=== PATIENT | female | born 1985 | race Caucasian/White ===

== ENCOUNTER 2019-09-16 01:54 | Emergency (ER) | payer SELFPAY ==
[2019-09-16] MEDS ORDERED: LORazepam 2 MG/ML VIAL ONE ×2 (02:11→04:38)
[2019-09-16] MEDS ORDERED: NA CHLORIDE 0.9% 1,000 ML ONE (02:11)
[2019-09-16] MEDS ORDERED: PROMETHAZINE INJ 25 MG/ML AMP ONE ×2 (02:11→04:38)
[2019-09-16 02:28] LABS: Absolute Lymphocytes (CBC) 1.5 K/uL (0.7-4.9); Basophils % 0.4 % (0-1.3); Hematocrit 38.7 % (36.0-45.0); Lymphocytes % 20.8 % (15.3-44.8); MPV 8.3 fL (7.6-11.3); RBC Red Blood Cell Count 4.49 M/uL (3.86-4.86)
[2019-09-16 02:36] LABS: ALT/SGPT 79 U/L (12-78); AST/SGOT 73 U/L (15-37); Albumin 3.6 g/dL (3.4-5.0); Alkaline Phosphatase 94 U/L (45-117); BUN Blood Urea Nitrogen 8 mg/dL (7-18); Bicarbonate 21 mmol/L (21-32); Bilirubin Direct 0.1 mg/dL (0-0.2); Bilirubin Total 0.5 mg/dL (0.2-1.0); Glucose Level 123 mg/dL (74-106); Lipase 44 U/L (73-393); Potassium 3.9 mmol/L (3.5-5.1); Sodium Level 138 mmol/L (136-145)
[2019-09-16 03:31] LABS: Urine Blood TRACE (NEG); Urine Glucose NEGATIVE (NEG); Urine Protein NEGATIVE (NEG); Urine Specific Gravity 1.025 (1.005-1.030); Urine pH 7.5 (5.0-7.0)
--- NOTE | 2019-09-16 06:15 | ER ---
Nurse's Notes [facility] Name: Minda Warner Age: 34 yrs Sex: Female : 1985 Arrival Date: 09/16/2019 Time: 01:55 Bed 5 Private MD: Diagnosis: Heroin Withdrawal Syndrome Presentation: 09/15 01:55 Chief complaint: EMS states: she went in to [facility] yesterday. been using heroine mg2 for years. today she is vomiting and with severe abdominal pain. Coronavirus screen: Patient denies a cough. Patient denies shortness of breath or difficulty breathing. Patient denies measured and/or subjective temperature greater than 100.4F prior to today's visit. Patient denies travel on a cruise ship or to a country the [facility] currently lists as an affected area. Patient denies contact with known and/or suspected case of COVID-19. been tested negative for COVID in [facility] yesterday. Ebola Screen: No symptoms or risks identified at this time. Initial Sepsis Screen: Does the patient meet any 2 criteria? No. Patient's initial sepsis screen is negative. Does the patient have a suspected source of infection? No. Patient's initial sepsis screen is negative. Risk Assessment: Do you want to hurt yourself or someone else? Patient reports no desire to harm self or others. Onset of symptoms was September 15, 2019. 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 - Social history:: Smoking status: unknown Patient uses street drugs, heroin. - Family history:: not pertinent. - Hospitalizations: : No recent hospitalization is reported. Screenin:13 Abuse screen: Denies threats or abuse. Denies injuries from another. Nutritional mg2 screening: No deficits noted. Tuberculosis screening: No symptoms or risk factors identified. Fall Risk IV access (20 points). Assessment: 02:13 General: Appears uncomfortable, Behavior is calm, cooperative. Pain: Complains of pain mg2 in abdomen. Neuro: Level of Consciousness is awake, alert, obeys commands, Oriented to person, place, time, situation. Cardiovascular: Capillary refill < 3 seconds Patient's skin is warm and dry. Respiratory: Airway is patent Respiratory effort is even, unlabored, Respiratory pattern is regular, symmetrical. GI: Reports lower abdominal pain, vomiting. : No signs and/or symptoms were reported regarding the genitourinary system. EENT: No signs and/or symptoms were reported regarding the EENT system. Derm: Skin is intact, is healthy with good turgor, Skin is pink, warm \T\ dry. normal. Musculoskeletal: Circulation, motion, and sensation intact. Capillary refill < 3 seconds. 03:30 Reassessment: Patient appears in no apparent distress at this time. Patient and/or mg2 family updated on plan of care and expected duration. Pain level reassessed. Patient is alert, oriented x 3, equal unlabored respirations, skin warm/dry/pink. 04:34 Reassessment: Patient appears in no apparent distress at this time. patient vomited. mg2 treatment given. 06:18 Reassessment: JENNA Gardner of [facility] called and was updated about the patient .she mg2 will send transportation to pick the patient up. 07:22 Reassessment: PT D/C TO [facility] VIA W/C WITH [facility], DX WITH HEROIN WITHDRAWAL bp SYNDROME. Vital Signs: 01:55 BP 149 / 112; Resp 18; mg2 02:13 Pulse 89; Temp 98.3; Pulse Ox 100% on R/A; mg2 04:18 BP 134 / 91; Pulse 89; Resp 18; Pulse Ox 99% on R/A; mg2 05:30 BP 116 / 83; Pulse 77; Resp 18; Pulse Ox 100% on R/A; mg2 06:32 BP 133 / 90; Pulse 80; Resp 18; Pulse Ox 100% on R/A; mg2 07:22 BP 117 / 75; Pulse 73; Resp 16; Temp 98.5; Pulse Ox 99% ; bp ED Course: 01:55 Patient arrived in ED. mg2 01:57 Brian Joyce MD is Attending Physician. rn 01:57 Triage completed. mg2 01:59 Arm band placed on. mg2 02:05 Missed attempt(s): 22 gauge in left wrist. Bleeding controlled, band aid applied, ds4 catheter tip intact. 02:13 No provider procedures requiring assistance completed. Inserted saline lock: 22 gauge mg2 in right hand, using aseptic technique. Blood collected. 02:14 Enma Kruger, RN is Primary Nurse. ea 02:14 Patient has correct armband on for positive identification. Door closed. mg2 02:16 Basic Metabolic Panel Sent. ds4 02:17 Lipase Sent. ds4 02:17 Hepatic Function Sent. ds4 02:17 CBC with Diff Sent. ds4 02:20 Radiology exam delayed due to test not completed at this time. IV insertion eh attempt and/or patient not having appropriate IV at this time. 02:40 Radiology exam delayed due to test not completed at this time. eh 03:10 Radiology exam delayed due to test not completed at this time. eh 03:55 CT Abd/Pelvis - IV Contrast Only In Process Unspecified. EDMS 06:30 IV discontinued, intact, bleeding controlled, No redness/swelling at site. Pressure mg2 dressing applied. Administered Medications: 02:12 Drug: Ativan 1 mg Route: IVP; Site: right hand; mg2 03:09 Follow up: Response: No adverse reaction mg2 02:12 Drug: NS 0.9% 1000 ml Route: IV; Rate: 1000 ml; Site: right hand; mg2 04:18 Follow up: Response: No adverse reaction; IV Status: Completed infusion; IV Intake: mg2 1000ml 02:12 Drug: Phenergan 12.5 mg Route: IVP; Site: right hand; mg2 03:09 Follow up: Response: No adverse reaction mg2 04:33 Drug: Ativan 1 mg Route: IVP; Site: right hand; mg2 05:16 Follow up: Response: No adverse reaction mg2 04:33 Drug: Phenergan 12.5 mg Route: IVP; Site: right hand; mg2 05:17 Follow up: Response: No adverse reaction; Vomiting decreased mg2 Intake: 04:18 IV: 1000ml; Total: 1000ml. mg2 Outcome: 06:14 Discharge ordered by . rn 06:30 Condition: stable mg2 07:22 Discharged to Rehab Facility bp 07:22 Discharge instructions given to patient, Instructed on discharge instructions, follow up and referral plans. Demonstrated understanding of instructions, follow-up care. 07:24 Patient left the ED. bp Signatures: Dispatcher [employer] EDMS Dallas Morales Brian Joyce MD MD rn Swanson, Donovan ds4 Enma Kruger, RN RN ea Dane Arredondo, RN RN bp Alvin Jeffery, RN RN mg2
--- NOTE | 2019-09-16 06:15 | EDPHYS ---
Physician Documentation [facility] Name: Minda Warner Age: 34 yrs Sex: Female : 1985 Arrival Date: 09/16/2019 Time: 01:55 Bed 5 Private MD: ED Physician Brian Joyce HPI: 09/15 01:58 This 34 yrs old Female presents to ER via EMS with complaints of heroin rn withdrawal. 01:58 Sent from rehab, just checked into rehab, last heroin use yesterday, no fever, reports rn nausea/vomiting/abd pain/muscle cramps, reports using heroin for years. No trauma. Does not think she is . Given suboxone but states threw it up.. Onset: The symptoms/episode began/occurred today. Severity of symptoms: At their worst the symptoms were moderate in the emergency department the symptoms are unchanged. The patient has not experienced similar symptoms in the past. The patient has not recently seen a physician. 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 - Social history:: Smoking status: unknown Patient uses street drugs, heroin. - Family history:: not pertinent. - Hospitalizations: : No recent hospitalization is reported. ROS: 01:58 Constitutional: Negative for fever, chills, and weight loss, Eyes: Negative for injury, rn pain, redness, and discharge, Neck: Negative for injury, pain, and swelling, Cardiovascular: Negative for chest pain, palpitations, and edema, Respiratory: Negative for shortness of breath, cough, wheezing, and pleuritic chest pain, Abdomen/GI: Negative for constipation Back: Negative for injury and pain, MS/Extremity: Negative for injury and deformity, Skin: Negative for injury, rash, and discoloration, Neuro: Negative for numbness, tingling, and seizure. Exam: 01:58 Constitutional: This is a well developed, well nourished patient who is awake, alert, rn moaning Head/Face: Normocephalic, atraumatic. ENT: dry MM Cardiovascular: tachycardic, regular Respiratory: Milld tachypnea, no retractions Abdomen/GI: soft, + reports pain with palpation in all 4 quadrants Skin: Warm, dry MS/ Extremity: Pulses equal, no cyanosis. Neurovascular intact. Neuro: Awake and alert, GCS 15, oriented to person, place, and situation. Cranial nerves II-XII grossly intact. Motor strength 5/5 in all extremities. Sensory grossly intact. Vital Signs: 01:55 BP 149 / 112; Resp 18; mg2 02:13 Pulse 89; Temp 98.3; Pulse Ox 100% on R/A; mg2 04:18 BP 134 / 91; Pulse 89; Resp 18; Pulse Ox 99% on R/A; mg2 05:30 BP 116 / 83; Pulse 77; Resp 18; Pulse Ox 100% on R/A; mg2 06:32 BP 133 / 90; Pulse 80; Resp 18; Pulse Ox 100% on R/A; mg2 07:22 BP 117 / 75; Pulse 73; Resp 16; Temp 98.5; Pulse Ox 99% ; bp MDM: 01:57 Patient medically screened. rn 06:11 Differential Diagnosis heroin withdrawal. 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 Counseling: I had a detailed discussion with the patient and/or guardian regarding: the historical points, exam findings, and any diagnostic results supporting the discharge/admit diagnosis, lab results, radiology results, the need for outpatient follow up, to return to the emergency department if symptoms worsen or persist or if there are any questions or concerns that arise at home. Response to treatment: the patient's symptoms have markedly improved after treatment, and as a result, I will discharge patient. Special discussion: I discussed with the patient/guardian in detail that at this point there is no indication for admission to the hospital. It is understood, however, that if the symptoms persist or worsen the patient needs to return immediately for re-evaluation. ED course: Pt better, sleeping, improved vitals, told patient unable to help her through entire withdrawal period, and we do not have detox capability, will dc back to Rehab facility. . 09/15 01:58 Order name: Basic Metabolic Panel; Complete Time: 02:38 rn 09/15 01:58 Order name: CBC with Diff; Complete Time: 02:38 rn 09/15 01:58 Order name: Hepatic Function; Complete Time: 02:38 rn 09/15 01:58 Order name: Lipase; Complete Time: 02:38 rn 09/15 03:13 Order name: Urine --Ancillary (enter results); Complete Time: 03:41 ds4 09/15 03:13 Order name: Urine Dipstick--Ancillary (enter results); Complete Time: 03:41 ds4 09/15 01:58 Order name: IV Start; Complete Time: 02:13 rn 09/15 01:58 Order name: Labs collected and sent; Complete Time: 02:13 rn 09/15 02:09 Order name: CT Abd/Pelvis - IV Contrast Only rn 09/15 01:58 Order name: Urine Test (obtain specimen); Complete Time: 03:08 rn 09/15 01:58 Order name: Urine Dipstick-Ancillary (obtain specimen); Complete Time: 03:09 rn Administered Medications: 02:12 Drug: Ativan 1 mg Route: IVP; Site: right hand; mg2 03:09 Follow up: Response: No adverse reaction mg2 02:12 Drug: NS 0.9% 1000 ml Route: IV; Rate: 1000 ml; Site: right hand; mg2 04:18 Follow up: Response: No adverse reaction; IV Status: Completed infusion; IV Intake: mg2 1000ml 02:12 Drug: Phenergan 12.5 mg Route: IVP; Site: right hand; mg2 03:09 Follow up: Response: No adverse reaction mg2 04:33 Drug: Ativan 1 mg Route: IVP; Site: right hand; mg2 05:16 Follow up: Response: No adverse reaction mg2 04:33 Drug: Phenergan 12.5 mg Route: IVP; Site: right hand; mg2 05:17 Follow up: Response: No adverse reaction; Vomiting decreased mg2 Disposition: 09/16/19 06:14 Discharged to Home. Impression: Heroin Withdrawal Syndrome. - Condition is Stable. - Discharge Instructions: Opioid Withdrawal. - Medication Reconciliation Form, Thank You Letter, Antibiotic Education, Prescription Opioid Use form. - Follow up: Private Physician; When: As needed; Reason: Recheck today's complaints, Re-evaluation by your physician. - Problem is new. - Symptoms have improved. Signatures: Dispatcher [employer] EDMS Brian Joyce MD MD rn Peltier, Brian, RN RN bp Gardose, Michele, RN RN mg2 Corrections: (The following items were deleted from the chart) 07:24 06:14 09/16/2019 06:14 Discharged to Home. Impression: Heroin Withdrawal Syndrome. bp Condition is Stable. Forms are Medication Reconciliation Form, Thank You Letter, Antibiotic Education, Prescription Opioid Use. Follow up: Private Physician; When: As needed; Reason: Recheck today's complaints, Re-evaluation by your physician. Problem is new. Symptoms have improved. rn
[2019-09-16 07:37] VITALS: BP 117/75; TEMP 98.5; O2SAT 99
--- NOTE | 2019-09-16 16:33 | RAD REPORT ---
EXAM DESCRIPTION: CT - Abdomen Pelvis W Contrast - 09/16/2019 4:33 am CLINICAL HISTORY: The patient is 34 years old and is Female; ABD PAIN TECHNIQUE: Axial computed tomography images of the abdomen and pelvis with intravenous contrast. Sagittal an d coronal reformatted images were created and reviewed. This CT exam was performed using one or mor e of the following dose reduction techniques: automated exposure control, adjustment of the mA and/ or kV according to patient size, and/or use of iterative reconstruction technique. COMPARISON: No relevant prior studies available. FINDINGS: LUNG BASES: Unremarkable. No mass. No consolidation. ABDOMEN: LIVER: Unremarkable. No mass. GALLBLADDER AND BILE DUCTS: No calcified stones. No ductal dilation. PANCREAS: No ductal dilation. No mass. SPLEEN: Unremarkable. ADRENALS: Unremarkable. No mass. KIDNEYS AND URETERS: Innumerable bilateral renal cysts are present. The kidneys enhance symmetric ally. There is no hydronephrosis or hydroureter of either kidney. STOMACH AND BOWEL: The stomach is distended with fluid and air. The small bowel is relatively de compressed. A moderate amount stool is present throughout the abdomen and pelvis. There is no mucosal thickening or evidence of bowel obstruction. PELVIS: APPENDIX: No findings to suggest acute appendicitis. BLADDER: Unremarkable. No mass. REPRODUCTIVE: Unremarkable as visualized. ABDOMEN and PELVIS: INTRAPERITONEAL SPACE: Unremarkable. No free air. No significant fluid collection. BONES/JOINTS: No acute fracture. SOFT TISSUES: The soft tissues are normal. VASCULATURE: Unremarkable. No abdominal aortic aneurysm. LYMPH NODES: Unremarkable. No enlarged lymph nodes. IMPRESSION: No acute findings on this contrasted CT of the abdomen and pelvis to explain the patient 's symptoms. Electronically signed by: Rose Joseph MD 09/16/2019 4:01 AM CDT Due to temporary technical issues with the PACS/Fluency reporting system, reports are being signed by the in house radiologist without review as a courtesy to ensure prompt reporting. The interpreting r adiologist is fully responsible for the content of the report.
== END 2019-09-16 07:24 | disposition home or self-care (01) ==
LOC: ER 01:54
DX: F19.939 Other psychoactive substance use, unspecified with withdrawal, unspecified (principal); I10 Essential (primary) hypertension
CPT/HCPCS: 36415; 74177; 80048; 80076; 81003; 81025; 83690; 85025; 96361; 96374; 96375; 99284; J2550; J7030; Q9967

== ENCOUNTER 2020-05-09 02:13 | Emergency (ER) | payer OTHER, SELFPAY ==
[2020-05-09 02:57] LABS: Hematocrit 37.8 % (36.0-45.0); Lymphocytes % 38.6 % (15.3-44.8); MPV 9.2 fL (7.6-11.3); RBC Red Blood Cell Count 4.45 M/uL (3.86-4.86)
[2020-05-09] MEDS ORDERED: FAMOTIDINE 20 MG/2 ML VIAL IV ONE (02:58)
[2020-05-09] MEDS ORDERED: ONDANSETRON 4 MG/2 ML VIAL ONE ×2 (02:58→05:42)
[2020-05-09] MEDS ORDERED: MORPHINE 4 MG/ML SYR ONE ×2 (02:58→03:26)
[2020-05-09] MEDS ORDERED: MAGNES/ALUMIN/SIMET 30ML UCUP ONE (02:58)
[2020-05-09] MEDS ORDERED: LIDOCAINE VISCOUS 2% SOLN 15 ML UDC ONE (02:58)
[2020-05-09] MEDS ORDERED: NA CHLORIDE 0.9% 1,000 ML ONE (02:58)
[2020-05-09 03:03] LABS: ALT/SGPT 68 U/L (12-78); AST/SGOT 52 U/L (15-37); Albumin 3.2 g/dL (3.4-5.0); Alkaline Phosphatase 92 U/L (45-117); BUN Blood Urea Nitrogen 5 mg/dL (7-18); Bicarbonate 26 mmol/L (21-32); Bilirubin Direct 0.1 mg/dL (0-0.2); Bilirubin Total 0.3 mg/dL (0.2-1.0); Glucose Level 101 mg/dL (74-106); Lipase 35 U/L (73-393); Protein, Total 7.6 g/dL (6.4-8.2); Sodium Level 141 mmol/L (136-145)
[2020-05-09] MEDS ORDERED: HYDROMORPHONE HCL 1 MG/ML INJ ONE (03:44)
[2020-05-09 04:38] LABS: Barbiturates NEGATIVE (NEGATIVE); Benzodiazepines NEGATIVE (NEGATIVE); Cocaine POSITIVE (NEGATIVE); METHAMPHETAM NEGATIVE (NEGATIVE); Methadone NEGATIVE (NEGATIVE); Opiates POSITIVE (NEGATIVE); Phencyclidine NEGATIVE (NEGATIVE); THC Cannibis POSITIVE (NEGATIVE)
--- NOTE | 2020-05-09 05:40 | ER ---
Nurse's Notes [facility] Name: Minda Warner Age: 35 yrs Sex: Female : 1985 Arrival Date: 05/09/2020 Time: 02:14 Bed 8 Private MD: Diagnosis: Unspecified abdominal pain;Upper abdominal pain, unspecified Presentation: 05/09 02:21 Chief complaint: Patient states: i have severe abdominal pain and n/v started tonight. mg2 i have hx of H Pylori and gastritis. Coronavirus screen: Client denies travel out of the [place] in the last 14 days. At this time, the client does not indicate any symptoms associated with coronavirus-19. Ebola Screen: No symptoms or risks identified at this time. Initial Sepsis Screen: Does the patient meet any 2 criteria? No. Patient's initial sepsis screen is negative. Does the patient have a suspected source of infection? No. Patient's initial sepsis screen is negative. Risk Assessment: Do you want to hurt yourself or someone else? Patient reports no desire to harm self or others. Onset of symptoms was May 09, 2020. 02:21 Method Of Arrival: Wheelchair mg2 02:21 Acuity: MALATHI 3 mg2 Triage Assessment: 02:22 General: Appears uncomfortable, Behavior is crying. Pain: Complains of pain in abdomen. mg2 EENT: No signs and/or symptoms were reported regarding the EENT system. Neuro: Level of Consciousness is awake, alert, obeys commands, Oriented to person, place, time, situation. Cardiovascular: Capillary refill < 3 seconds Patient's skin is warm and dry. Respiratory: Airway is patent Respiratory effort is even, unlabored, Respiratory pattern is regular, symmetrical. GI: Reports upper abdominal pain, nausea, vomiting. : No signs and/or symptoms were reported regarding the genitourinary system. Derm: Skin is intact, is healthy with good turgor, Skin is pink, warm \T\ dry. normal. Musculoskeletal: Circulation, motion, and sensation intact. Capillary refill < 3 seconds. 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 - Social history:: Smoking status: unknown Patient/guardian denies using alcohol, street drugs, The patient lives with family. - Family history:: not pertinent. Screenin:23 Abuse screen: Denies threats or abuse. Denies injuries from another. Nutritional mg2 screening: No deficits noted. Tuberculosis screening: No symptoms or risk factors identified. Fall Risk IV access (20 points). Assessment: 02:23 General: see triage assessment. mg2 03:12 Reassessment: patient screaming in pain. patient is from [facility]. she wants more mg2 pain medicine. 03:18 Reassessment: Sanjiv- [phone]. mg2 03:24 Reassessment: pt rolling in bed moaning, states pain is not any better, states the only em thing that works for her is Dilaudid, Dr. Navarrete notified, received VO for Dilaudid 1 mg IVP x 1. 06:04 Reassessment: patient is refusing to leave. provider informed. security contacted and mg2 came. patient escorted out and was taken by Sanjiv, from [facility]. Vital Signs: 02:23 BP 170 / 108; Pulse 83; Resp 18; Temp 98.1; Pulse Ox 98% on R/A; mg2 05:47 BP 135 / 70; Pulse 80; Resp 18; Temp 98.5; Pulse Ox 100% on R/A; mg2 ED Course: 02:14 Patient arrived in ED. cl3 02:17 Jovani Navarrete MD is Attending Physician. ma2 02:20 Alvin Jeffery, JENNA is Primary Nurse. mg2 02:22 Triage completed. mg2 02:23 Arm band placed on. mg2 02:23 No provider procedures requiring assistance completed. mg2 02:24 Patient has correct armband on for positive identification. Pulse ox on. NIBP on. mg2 02:40 Inserted saline lock: 20 gauge in left forearm, using aseptic technique. Blood oe collected. 03:15 IV discontinued, intact, bleeding controlled, No redness/swelling at site. Pressure mg2 dressing applied. 03:32 Inserted saline lock: 22 gauge in right wrist, using aseptic technique. mg2 04:27 CT Abdomen - IV Contrast Only In Process Unspecified. EDMS 06:05 IV discontinued, intact, bleeding controlled, No redness/swelling at site. Pressure mg2 dressing applied. Administered Medications: 02:42 Drug: NS 0.9% 1000 ml Route: IV; Rate: 1 bolus; Site: left forearm; 02:44 Drug: morphine 4 mg Route: IVP; Site: left forearm; 03:31 Follow up: Response: No adverse reaction mg2 02:46 Drug: Zofran (Ondansetron) 4 mg Route: IVP; Site: left forearm; 03:31 Follow up: Response: No adverse reaction mg2 02:48 Drug: Pepcid 20 mg Route: IVP; Site: left forearm; 03:30 Follow up: Response: No adverse reaction mg2 02:50 Drug: GI Cocktail without - (Maalox Suspension 30 ml, Lidocaine Liquid 2 % 15 wh ml) Route: PO; 03:30 Follow up: Response: No adverse reaction mg2 03:13 Drug: morphine 4 mg {Note: RASS 0.} Route: IVP; Site: left forearm; 03:30 Follow up: Response: No adverse reaction mg2 03:31 Drug: Dilaudid 1 mg Route: IVP; Site: right wrist; mg2 04:04 Follow up: Response: No adverse reaction mg2 05:24 Drug: Zofran (Ondansetron) 4 mg Route: IVP; Site: right wrist; mg2 05:44 Follow up: Response: No adverse reaction mg2 Outcome: 05:39 Discharge ordered by MD. cueva 06:06 Discharged to home via wheelchair. mg2 06:06 Condition: good 06:06 Discharge instructions given to patient, Instructed on discharge instructions, follow up and referral plans. medication usage, Demonstrated understanding of instructions, follow-up care, medications, Prescriptions given X 2. 06:06 Patient left the ED. mg2 Signatures: Dispatcher [employer] Gautam Marques, RN JENNA Carson Clark Winsy, RN RN Jovani Navarrete MD MD ma2 Gardose, Michele, RN RN [facility] Azucena Lopez3
--- NOTE | 2020-05-09 05:40 | EDPHYS ---
Physician Documentation [facility] Name: Minda Warner Age: 35 yrs Sex: Female : 1985 Arrival Date: 05/09/2020 Time: 02:14 Bed 8 Private MD: ED Physician Jovani Navarrete HPI: 05/09 02:35 This 35 yrs old Female presents to ER via Wheelchair with complaints of ma2 Abdominal Pain. 02:35 The patient presents with abdominal pain in the epigastric area. Associated signs and ma2 symptoms: Pertinent negatives: blood in stools, constipation, fever. Severity of pain: At its worst the pain was moderate in the emergency department the pain is unchanged. The patient has experienced similar episodes in the past. 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 - Social history:: Smoking status: unknown Patient/guardian denies using alcohol, street drugs, The patient lives with family. - Family history:: not pertinent. ROS: 02:35 Constitutional: Negative for fever, chills, and weight loss. ma2 02:35 All other systems are negative. Exam: 02:35 Constitutional: This is a well developed, well nourished patient who is awake, alert, ma2 and in no acute distress. Chest/axilla: Normal chest wall appearance and motion. Nontender with no deformity. No lesions are appreciated. Cardiovascular: Regular rate and rhythm with a normal S1 and S2. No gallops, murmurs, or rubs. Normal PMI, no JVD. No pulse deficits. Respiratory: Lungs have equal breath sounds bilaterally, clear to auscultation and percussion. No rales, rhonchi or wheezes noted. No increased work of breathing, no retractions or nasal flaring. Abdomen/GI: Soft, non-tender, with normal bowel sounds. No distension or tympany. No guarding or rebound. No evidence of tenderness throughout. MS/ Extremity: Pulses equal, no cyanosis. Neurovascular intact. Full, normal range of motion. Neuro: Awake and alert, GCS 15, oriented to person, place, time, and situation. Cranial nerves II-XII grossly intact. Motor strength 5/5 in all extremities. Sensory grossly intact. Cerebellar exam normal. Normal gait. Vital Signs: 02:23 BP 170 / 108; Pulse 83; Resp 18; Temp 98.1; Pulse Ox 98% on R/A; mg2 05:47 BP 135 / 70; Pulse 80; Resp 18; Temp 98.5; Pulse Ox 100% on R/A; mg2 MDM: 02:17 Patient medically screened. [facility] 02:35 Differential diagnosis: gastritis, gastroesophageal reflux disease, Irritable bowel ma2 syndrome, urinary tract infection. 05:38 Data reviewed: vital signs, nurses notes. Counseling: I had a detailed discussion with [facility] the patient and/or guardian regarding: the historical points, exam findings, and any diagnostic results supporting the discharge/admit diagnosis, the presence of at least one elevated blood pressure reading (>120/80) during this emergency department visit, the need for outpatient follow up. Medical screen evaluation completed. EMTALA emergency medical condition absent. Response to treatment: the patient's symptoms have markedly improved after treatment. 05/09 02:20 Order name: Basic Metabolic Panel [facility] [place] 05/09 02:20 Order name: CBC with Diff [facility] [place] 05/09 02:20 Order name: Hepatic Function [facility] [place] 05/09 02:20 Order name: Lipase [facility] [place] 05/09 03:26 Order name: UDS [facility] 05/09 03:27 Order name: Urine Drug Screen [facility] 05/09 04:01 Order name: CT Abdomen - IV Contrast Only 05/09 04:09 Order name: Urine Dipstick--Ancillary (enter results) [facility] 05/09 04:09 Order name: Urine --Ancillary (enter results) [facility] 05/09 04:10 Order name: Urine Dipstick-Ancillary [facility] 05/09 04:10 Order name: Urine --Ancillary [facility] 05/09 02:20 Order name: IV Saline Lock; Complete Time: 02:38 [facility] [place] 05/09 02:20 Order name: Labs collected and sent; Complete Time: 02:38 [facility] [place] 05/09 02:34 Order name: Urine Dipstick-Ancillary (obtain specimen); Complete Time: 04:03 [facility] 05/09 04:01 Order name: Urine Test (obtain specimen); Complete Time: 04:03 Administered Medications: 02:42 Drug: NS 0.9% 1000 ml Route: IV; Rate: 1 bolus; Site: left forearm; 02:44 Drug: morphine 4 mg Route: IVP; Site: left forearm; 03:31 Follow up: Response: No adverse reaction mg2 02:46 Drug: Zofran (Ondansetron) 4 mg Route: IVP; Site: left forearm; 03:31 Follow up: Response: No adverse reaction mg2 02:48 Drug: Pepcid 20 mg Route: IVP; Site: left forearm; 03:30 Follow up: Response: No adverse reaction mg2 02:50 Drug: GI Cocktail without - (Maalox Suspension 30 ml, Lidocaine Liquid 2 % 15 wh ml) Route: PO; 03:30 Follow up: Response: No adverse reaction mg2 03:13 Drug: morphine 4 mg {Note: RASS 0.} Route: IVP; Site: left forearm; 03:30 Follow up: Response: No adverse reaction mg2 03:31 Drug: Dilaudid 1 mg Route: IVP; Site: right wrist; mg2 04:04 Follow up: Response: No adverse reaction mg2 05:24 Drug: Zofran (Ondansetron) 4 mg Route: IVP; Site: right wrist; mg2 05:44 Follow up: Response: No adverse reaction mg2 Disposition: 05/09/20 05:39 Discharged to Home. Impression: Unspecified abdominal pain, Upper abdominal pain, unspecified. - Condition is Stable. - Discharge Instructions: Abdominal Pain, Adult. - Prescriptions for Diclofenac Sodium 75 mg Oral Tablet Sustained Release - take 1 tablet by ORAL route 2 times per day; 30 tablet. Pepcid 20 mg Oral Tablet - take 1 tablet by ORAL route once daily; 20 tablet. - Medication Reconciliation Form, Thank You Letter, Antibiotic Education, Prescription Opioid Use form. - Follow up: Private Physician; When: Tomorrow; Reason: Continuance of care. Signatures: Dispatcher [employer] EDHalima Forrester RN RN Jovani Navarrete MD MD ma2 Alvin Jeffery RN RN mg2 Corrections: (The following items were deleted from the chart) 06:06 05:39 05/09/2020 05:39 Discharged to Home. Impression: Unspecified abdominal pain; mg2 Upper abdominal pain, unspecified. Condition is Stable. Prescriptions for Diclofenac Sodium 75 mg Oral Tablet Sustained Release - take 1 tablet by ORAL route 2 times per day; 30 tablet, Pepcid 20 mg Oral Tablet - take 1 tablet by ORAL route once daily; 20 tablet. and Forms are Medication Reconciliation Form, Thank You Letter, Antibiotic Education, Prescription Opioid Use. Follow up: Private Physician; When: Tomorrow; Reason: Continuance of care. ma2
[2020-05-09 05:52] LABS: Urine Blood NEGATIVE (NEG); Urine Glucose NEGATIVE (NEG); Urine Protein NEGATIVE (NEG); Urine pH 8.5 (5.0-7.0)
[2020-05-09 06:12] VITALS: BP 135/70; TEMP 98.5; O2SAT 100
--- NOTE | 2020-05-09 14:50 | RAD REPORT ---
EXAM DESCRIPTION: CT - Abdomen W Contrast - 05/09/2020 6:55 am CLINICAL HISTORY: The patient is 35 years old and is Female; ABD PAIN TECHNIQUE: Axial computed tomography images of the abdomen with intravenous contrast. Sagittal and coronal reformatted images were created and reviewed. This CT exam was performed using one or more of the following dose reduction techniques: automated exposure control, adjustment of the mA and/o r kV according to patient size, and/or use of iterative reconstruction technique. COMPARISON: CT abdomen and pelvis 09/16/2019. FINDINGS: Lung bases: Unremarkable. No mass. No consolidation. Liver: Hepatomegaly. Gallbladder and bile ducts: Unremarkable. No calcified stones. No ductal dilation. Pancreas: Unremarkable. No mass. No ductal dilation. Spleen: Unremarkable. No splenomegaly. Adrenals: Unremarkable. No mass. Kidneys and ureters: Numerous low-density lesions in the kidneys bilaterally, similar to prior, w hich likely represent cysts. ACR White Paper guidelines (Herdiamond, et al. JACR 2018; 15(2):264-273) macdonald ggest no follow-up is necessary. No hydronephrosis. Stomach and bowel: Unremarkable. No obstruction. No mucosal thickening. Intraperitoneal space: Unremarkable. No free air. No significant fluid collection. Bones/joints: No acute fracture. No dislocation. Soft tissues: Unremarkable. Vasculature: Unremarkable. No abdominal aortic aneurysm. Lymph nodes: Unremarkable. No enlarged lymph nodes. IMPRESSION: No acute findings in the abdomen. Electronically signed by: Rambo Queen MD 05/09/2020 5:01 AM CDT Due to temporary technical issues with the PACS/Fluency reporting system, reports are being signed by the in house radiologists without review as a courtesy to insure prompt reporting. The interpreting radiologist is fully responsible for the content of the report.
== END 2020-05-09 06:06 | disposition home or self-care (01) ==
LOC: ER 02:13
DX: R10.13 Epigastric pain (principal); I10 Essential (primary) hypertension
CPT/HCPCS: 36415; 74160; 80048; 80076; 80307; 81003; 81025; 83690; 85025; 99284; J1170; J2405; J7030; Q9967

== ENCOUNTER 2020-05-18 10:03 | Emergency (ER) | payer OTHER, SELFPAY ==
--- OUTSIDE RECORDS SUMMARY | 2020-05-18 10:07 | XMS REPORT | Continuity of Care Document ---
:1985 Author Organization [facility] t Address [address] [place] [address] Care Team Providers Name Role Phone Sharpless Primary Care Physician Filemon Raphael MD Attending Clinician Armida Mcbride Attending Clinician Smita Silva Attending Clinician Francisco Guevara Attending Clinician Francisco Trujillo Attending Clinician Problems Condition Condition Condition Status Onset Resolution Last Treating Co mments Source Name Details Category Date Date Treatment Clinician Date ABDOMINAL Diagnosis Active 2016-022016-12-20 Memoria PAIN 02-17 18:44:00 l 00:00: [place] ABDOMINAL 00 PAIN Active 12/18/2016 [facility] INTRACTABL Diagnosis Active 2016-07-19 Memoria E 07-10 22:04:00 l ABDOMINAL 00:00: [place] PAIN INTRACTABL 00 E ABDOMINAL PAIN Active 07/10/2016 [facility] GENERALIZE Diagnosis Active 2016-07-10 Memoria D 07-10 19:33:00 l ABDOMINAL 00:00: [place] PAIN GENERALIZE 00 D ABDOMINAL PAIN Active 07/10/2016 [facility] ABDOMINAL Diagnosis Active 2016-07-17 Memoria PAIN-GENER 07-08 00:43:00 l AL 16:00: [place] ABDOMINAL 00 PAIN-GENER AL Active 7 [facility] Crohn's Problem Active 2016-12-21 Sandoval tobi disease 02:56:26 l (disorder) Crohn's Her sharma disease (disorder) [facility] History of Past Illness Condition Condition Condition Status Onset Resolution Last Treating Co mments Source Name Details Category Date Date Treatment Clinician Date Unspecifie Problem 2016-022016-12-21 2016-12-21 Memoria d 1 02:56:26 02:56:26 l abdominal 05:00: [place] pain Unspecifie 00 d abdominal pain 12/18/2016 12/21/2016 [facility] Epigastric Problem 2016-022016-12-08 2016-12-08 Memoria pain 0-19 02:39:54 02:39:54 l 05:00: [place] Epigastric 00 pain 12/05/2016 12/08/2016 [facility] Allergies, Adverse Reactions, Alerts This patient has no known allergies or adverse reactions. Social History Social Habit Start Date Stop Date Quantity Comments Source Sex Assigned At [facility] Cigarettes smoked 2017-01-02 2017-01-02 [facility] - current (pack per 00:00:00 00:00:00 [facility] Center day) - Reported Tobacco use and 2017-01-02 2017-01-02 Never used [facility] - exposure 00:00:00 00:00:00 [facility] Alcohol intake 2017-01-02 2017-01-02 Current [facility] es - 00:00:00 00:00:00 non-drinker of Medical nter alcohol (finding) Social History 2016-12-18 2016-12-18 [facility] 16:48:33 16:48:33 Smoking Status Start Date Stop Date Source Current every day smoker 2017-01-02 00:00:00 [facility] Medications Ordered Filled Start Stop Current Ordering Indication Dosage Frequency Signature Comments Components Source Medication Medication Date Date Medication? Clinician (SIG) Name Name sucralfate 2016-02 Yes 1g Q.25D Take [address] (CARAFATE) 1-16 by mouth 4 Precious es - 1 gram 16:09: (four) Medical tablet 15 times Center daily. morphine 2016-02 No 4 mg, Memoria Sulfate 02-17 Route: l 18:30: IVP, ONCE, [place] 00 Dosing Weight 46.818, kg, Priority: STAT, Start date: 12/18/16 13:30:00 CDT, Stop date: 12/18/16 13:30:00 CDT Saline 2016-02 No Notes: Memoria Flush 0.9% 02-17 Same as: l 17:38: BD [place] Posiflush Sterile ondansetron 2016-02 No Notes: [place] tobi 02-17 (Same as: l 17:38: Zofran) [place] 00 MEDICATION WASTE Product Size: 4 mg Product Wasted: ___ mg GI cocktail 2016-02 No Notes: [place]oval tobi - G.I. l 17:38: Cocktail = [place] 00 antacid with simethicon e 22.5 mL - lidocaine viscous 7.5 mL Famotidine 2016-02 Yes 20 mg = 1 Me moria 20 MG Oral 0-19 tab, PO, l Tablet 23:08: BID, # 60 Khai n [Pepcid] 00 tab, 0 Refill(s) Sodium 2016-02 No 1,000 mL, Memori a Chloride 0-19 1000 l 0.9% 21:13: ml/hr, [place] (Bolus) IV 00 Infuse Over: 1 hr, Route: IV, 1,000, Drug form: INJ, ONCE, Priority: STAT, Dosing Weight 45.455 kg, Start date: 12/05/16 16:13:00 CDT, Duration: 1 doses or times, Stop date: 12/05/16 16:13:00 CDT Zofran 2016-02 No Notes: Memoria 0-19 (Same as: l 21:12: Zofran) [place] 00 MEDICATION WASTE Product Size: 4 mg Product Wasted: ___ mg Morphine 2016-02 No Notes: Memoria 0-19 (Same l 21:12: as:MORPhin [place] 00 e Sulfate) Pepcid 2016-02 No Notes: Memoria 0-19 (Same as: l 21:12: Pepcid) [place] 00 Can be dilute in 5-10cc NS IVP: Slow IV push over at least 2 minutes. GI cocktail 2016-02 No Notes: [place] tobi 0-19 G.I. l 18:34: Cocktail = antacid with simethicon e 22.5 mL - lidocaine viscous 7.5 mL predniSONE Yes See Memoria 20 mg oral 5-26 Special l tablet 20:12: Instructio Dennise nn 00 ns, PO, Daily, 16 day regimen: Days 1-4 - 40 mg (2 tabs) daily Days 5-8 - 30 mg (1 1/2 tabs) daily Days 9-12 - 20 mg (1 tab) daily Day 13-16 - 10 mg (1/2 tab) daily, X 16 day, # 24 tab, 0 Refill(s) mesalamine Yes 800 mg = 1 M emoria 800 MG 5-26 tab, PO, l Enteric 20:12: TID, # 90 Dennise nn Coated 00 tab, 0 Tablet Refill(s) Metronidazo Yes 500 mg = 1 Memoria le 500 MG 5-26 tab, PO, l Oral Tablet 20:12: Q8H, X 12 H ermann [Flagyl] 00 day, # 36 tab, 0 Refill(s) Ciprofloxac Yes 500 mg = 1 Memoria in 500 MG 5-26 tab, PO, l Oral Tablet 20:12: Q12H, X 12 [place] [Cipro] day, # 24 tab, 0 Refill(s) Asacol No Notes: Memoria 5-26 (Same as: l 18:00: Asacol HD) (Do not crush) Prednisone No Notes: Memor ia 5-26 Take with l 14:00: food. Morphine No Notes: Memoria 5-26 (Same l 00:58: as:MORPhin e Sulfate) Haldol No Notes: Memoria 5-25 (Same as: l 22:00: Haldol) Nicotine No Notes: Memoria 5-25 (Same as: l 19:30: Habitrol) "Remove old patch before applicatio n of new patch" WASTE: F/P - P Waste Black; E - P Waste Black Bentyl No Notes: Memoria 5-25 (Same as: l 16:30: Bentyl) methylPREDN No Notes: [place] tobi ISolone 5-25 (Same l SODium 12:36: as:Solu-ME Dennise nn SUCCinate 00 DROL, A-Methapre d) Sodium No 250 mL, Memoria Chloride 5-25 Route: l 0.9% IV 09:46: IVPB, [place] Start date: 07/11/16 4:46:00 CDT, Duration: 30 day, Stop date: 08/10/16 4:45:00 CDT, PRN Line Flush BD Normal No Notes: Memori a Saline 5-25 (Same as: l Flush 09:46: BD [place] Posiflush) Phenergan No Notes: Do Mem oria 5-25 not give l 09:36: IV push. [place] (Same as: Phenergan) Enoxaparin No Notes: Memor ia 5-25 (Same as: l 01:00: Lovenox) [place] 00 Flagyl No Notes: Memoria 5-25 (Same as: l 01:00: Flagyl) [place] 00 Avoid alcohol. Ciprofloxac No Notes: Do M emoria in -25 not l 01:00: refrigerat e Saline No Notes: Memoria Flush 0.9% 5-25 (Same as: l 00:39: BD [place] Posiflush) Morphine No Notes: Memoria 5-25 (Same l 00:39: as:MORPhin e Sulfate) Ondansetron No Notes: [place] tobi 5-25 (Same as: l 00:39: Zofran) MEDICATION WASTE Product Size: 4 mg Product Wasted: ___ mg Sodium No 1,000 mL, Memori a Chloride 5-25 Rate: 125 l 0.0769 00:39: ml/hr, [place] MEQ/ML 00 Infuse Injectable over: 8 Solution hr, Route: IV, Dosing Weight 43.182 kg, Total Volume: 1,000, Start date: 07/10/16 19:39:00 CDT, Duration: 30 day, Stop date: 08/09/16 19:38:00 CDT Acetaminoph No Notes: Do M emoria en 5-25 not exceed l 00:39: 4 gm/day. [place] (Same as: Tylenol) Morphine No Notes: Memoria 5-25 (Same l 00:02: as:MORPhin [place] e Sulfate) Zofran No Notes: Memoria 5-24 (Same as: l 21:40: Zofran) MEDICATION WASTE Product Size: 4 mg Product Wasted: ___ mg Morphine No Notes: Memoria 5-24 (Same l 21:40: as:MORPhin [place] e Sulfate) Sodium No 1,000 mL, Memori a Chloride -24 1,000 l 0.154 21:40: ml/hr, [place] MEQ/ML 00 Infuse Injectable Over: 1 Solution hr, Route: IV, 1,000, Drug form: INJ, ONCE, Priority: STAT, Dosing Weight 43.182 kg, Start date: 07/10/16 16:40:00 CDT, Duration: 1 doses or times, Stop date: 07/10/16 16:40:00 CDT Saline No Notes: Memoria Flush 0.9% -24 (Same as: l 21:40: BD [place] 00 Posiflush) { Yes See Memoria (Methylpred 5-23 Instructio l nisolone 4 10:52: ns, PO, Herm aishwarya MG Oral 00 Take by Tablet mouth as [Medrol]) } directed Pack on label., [Medrol # 1 Pack, Dosepak] 0 Refill(s) Dicyclomine Yes 20 mg = 1 M emoria Hydrochlori 5-23 tab, PO, l de 20 MG 10:50: QID-Before Her sharma Oral Tablet 00 Meals, # [Bentyl] 40 tab, 0 Refill(s) Dicyclomine No Notes: [place] tobi 5-23 (Same as: l 10:47: Bentyl) Hydromorpho No 0.5 mg, Mem oria ne 5-23 Route: l 10:39: IVP, ONCE, [place] 00 Dosing Weight 50, kg, Priority: STAT, Start date: 07/09/16 5:39:00 CDT, Stop date: 07/09/16 5:39:00 CDT Omnipaque No 45 Memoria 300 5-23 mL/min, l injectable 10:19: STAT, Khai n solution 00 Start date: 07/09/16 5:19:00 CDT, Duration: 1 doses or times methylPREDN No Notes: [place] tobi ISolone 5-23 (Same l SODium 08:26: as:Solu-ME Ednnise nn SUCCinate 00 DROL, A-Methapre d) Ondansetron No Notes: [place] tobi 5-23 (Same as: l 08:26: Zofran) [place] 00 MEDICATION WASTE Product Size: 4 mg Product Wasted: ___ mg Morphine No Notes: Memoria 5-23 (Same l 08:26: as:MORPhin [place] 00 e Sulfate) Saline No Notes: Memoria Flush 0.9% 5-23 (Same as: l 08:16: BD [place] 00 Posiflush) Sodium No 1,000 mL, Memori a Chloride 5-23 2,000 l 0.154 08:16: ml/hr, [place] MEQ/ML 00 Infuse Injectable Over: 30 Solution minutes, Route: IV, 1,000, Drug form: INJ, ONCE, Priority: STAT, Dosing Weight 50 kg, Start date: 07/09/16 3:16:00 CDT, Duration: 1 doses or times, Stop date: 07/09/16 3:16:00 CDT Vital Signs Vital Name Observation Time Observation Value Comments Source Systolic (mm Hg) 2016-12-18 20:00:00 Sandoval rial [place] Diastolic (mm Hg) 2016-12-18 20:00:00 Mem orial [place] Respitory Rate 2016-12-18 20:00:00 Memori al [place] Temperature Oral (F) 2016-12-18 20:00:00 98.5 F [facility] [place] Systolic (mm Hg) 2016-12-18 19:30:00 Sandoval rial [place] Diastolic (mm Hg) 2016-12-18 19:30:00 Mem orial [place] Respitory Rate 2016-12-18 19:30:00 Memori al [place] Systolic (mm Hg) 2016-12-18 19:00:00 Sandoval rial [place] Diastolic (mm Hg) 2016-12-18 19:00:00 Mem orial [place] Respitory Rate 2016-12-18 19:00:00 Memori al [place] Heart Rate 2016-12-18 16:40:00 [facility] [place] Height 2016-12-18 16:40:00 152.4 cm [facility] [place] BMI Calculated 2016-12-18 16:40:00 Memori al [place] Temperature Oral (F) 2016-12-18 16:40:00 98.5 F [facility] [place] Weight 2016-12-18 16:40:00 [facility] [place] Temperature Oral (F) 2016-12-05 22:21:00 99.2 F [facility] [place] Heart Rate 2016-12-05 22:21:00 [facility] [place] Systolic (mm Hg) 2016-12-05 22:21:00 Sandoval rial [place] Diastolic (mm Hg) 2016-12-05 22:21:00 Mem orial [place] Respitory Rate 2016-12-05 22:21:00 Memori al [place] Weight 2016-12-05 18:05:00 [facility] [place] Temperature Oral (F) 2016-12-05 18:05:00 98.4 F [facility] [place] BMI Calculated 2016-12-05 18:05:00 Mem[facility] [place] Height 2016-12-05 18:05:00 152.4 cm [facility] [place] Heart Rate 2016-12-05 18:05:00 [facility] [place] Respitory Rate 2016-12-05 18:05:00 Memori al [place] Systolic (mm Hg) 2016-12-05 18:05:00 Sandoval rial [place] Diastolic (mm Hg) 2016-12-05 18:05:00 Mem orial [place] Systolic (mm Hg) 2016-07-12 16:56:00 Sandoval rial [place] Diastolic (mm Hg) 2016-07-12 16:56:00 Mem orial [place] Respitory Rate 2016-07-12 16:56:00 Memori al [place] Temperature Oral (F) 2016-07-12 16:56:00 99.4 F [facility] [place] Heart Rate 2016-07-12 16:56:00 [facility] [place] Temperature Oral (F) 2016-07-12 13:05:00 98.1 F [facility] [place] Heart Rate 2016-07-12 13:05:00 [facility] [place] Respitory Rate 2016-07-12 13:05:00 Memori al [place] Systolic (mm Hg) 2016-07-12 13:05:00 Sandoval rial [place] Diastolic (mm Hg) 2016-07-12 13:05:00 Mem orial [place] Systolic (mm Hg) 2016-07-12 09:30:00 Sandoval rial [place] Diastolic (mm Hg) 2016-07-12 09:30:00 Mem orial [place] Respitory Rate 2016-07-12 09:30:00 Memori al [place] Temperature Oral (F) 2016-07-12 09:30:00 99.3 F [facility] [place] Heart Rate 2016-07-12 09:30:00 [facility] [place] Weight 2016-07-11 02:11:00 [facility] [place] BMI Calculated 2016-07-11 02:11:00 Memori [facility] [place] Height 2016-07-11 02:11:00 152.4 cm [facility] [place] BMI Calculated 2016-07-10 21:16:00 Memori al [place] Weight 2016-07-10 21:16:00 [facility] [place] Height 2016-07-10 21:16:00 152.4 cm [facility] [place] Systolic (mm Hg) 2016-07-09 11:54:00 Sandoval rial [place] Diastolic (mm Hg) 2016-07-09 11:54:00 Mem orial [place] Respitory Rate 2016-07-09 11:54:00 Memori al [place] Temperature Oral (F) 2016-07-09 11:54:00 98.9 F [facility] [place] Heart Rate 2016-07-09 11:54:00 [facility] [place] Weight 2016-07-09 08:02:00 [facility] [place] Heart Rate 2016-07-09 08:02:00 [facility] [place] Systolic (mm Hg) 2016-07-09 08:02:00 Sandoval rial [place] Diastolic (mm Hg) 2016-07-09 08:02:00 Mem orial [place] Respitory Rate 2016-07-09 08:02:00 Memori al [place] Temperature Oral (F) 2016-07-09 08:02:00 98.7 F [facility] [place] Procedures Procedure Date / Time Performed Performing Clinician Sourc e Appendectomy [facility] [place] Encounters Start End Encounter Admission Attending Care Care Encounter Source Date/Time Date/Time Type Type Clinicians Facility Department ID 2019-10-17 2019-10-17 Emergency IRINEO Raphael [id number] 09:42:00 12:43:00 Filemon Sheridan [facility] [id number] [facility] [id number] [facility] [id number] [address] ([facility]) 2016-12-18 2016-12-18 Outpatient Rajan Mcbride [facility] [id number] 11:34:00 15:14:00 K 03 2016-12-05 2016-12-05 Outpatient Ricardo, [facility] [id number] 12:59:00 18:44:00 Shelby 02 Smita 2016-07-10 2016-07-12 Outpatient Paola, [facility] [id number] 16:16:00 18:55:00 Cornelius Singh Kain 2016-07-09 2016-07-09 Outpatient Trujillo, [facility] [id number] 02:57:00 06:53:00 Faisal 00 Francisco Results Test Description Test Time Test Comments Results Result Comments Source HEMATOLOGY 2016-12-18 17:46:00 Test Item Value Reference Range Interpretation Comme nts MCH (test code = MCH) 30.0 pg 27.0-31.0 [facility] PsvckdbSEMLOJPCYH1549-89-54 17:46:008.4[facility]ann[facility]MATOLOGY 2016-12-18 17:46:004.56[facility] HermannCHEM OVTHM1844-88-09 17:46:85829Syjvpiji HermannCHEM DQMGI0899-54-51 17:46:001.0[facility] HermannCHEM COZYT1402-74-73 17:46:0018[facility] HermannCHEM ODNJP5115-67-99 17:46:003.8[facility] HermannCHEM EAQXG6436-68-16 17:46:009.6[facility] HermannCHEM LFPPN1950-01-30 17:46:14823 [facility]annCHE[facility] XHGTS1673-34-11 17:46:000.5[facility] HermannCHEM PANEL 2016-12-18 17:46:0088[facility] HermannCHEM BBDBV9113-06-40 17:46:0035[facility] HermannCHEM CSFGW1614-79-78 17:46:0098[facility]annCHEM DPWSY8899-13-44 17:46:003.8[facility] HermannCHEM OYYPM7371-87-60 17:46:007.6[facility]annCHEM IQDJH5481-83-66 17:46:009.2[facility]annCHEM JRUHP7685-17-06 17:46:0028 [facility]annCHE[facility] DHFSA5054-67-77 17:46:09563Yvhpceff HermannCHEM PANEL 2016-12-18 17:46:22755Kezueeyg HermannCHEM NKDLR8118-56-59 17:46:003.6[facility] HermannCHEM XUTOX9706-94-10 17:46:000.72[facility] HermannCHEM OKZQS7762-99-24 17:46:0013[facility] HermannCHEM PNMGA2816-91-87 17:46:0093[facility] [place] VXUTPVDDUOSEK2684-71-79 17:46:00Negative *NA*(12/18/16 12:46 PM)[facility] [place] CWBWVUGXBE8141-52-89 17:46:002.6[facility] QixpdptGTZPSENMQI0301-93-39 17:46:000.1 [facility] IokoyygITDGIYVDHD3815-46-44 17:46:000.1[facility] HermannHEMATOLOGY 2016-12-18 17:46:000.4[facility] GlcuxndDOJOKDPPVC2666-44-94 17:46:005.1[facility] EzrayqzBCNQDZYJUJ6928-87-66 17:46:001.7[facility] BobvbsqGXZEIGTPPO6711-34-14 17:46:000.8[facility] WbrdkexCZDYAEBETC2734-06-55 17:46:005.1[facility] [place] SMMLFZYPYD7956-23-74 17:46:0061.2[facility] OubgbdpNPMRYTOUIR6980-73-99 17:46:00 31.2[facility] QumtcfeZDRNJLIYUW8996-05-58 17:46:13696Eklcenqz HermannHEMATOLOGY 2016-12-18 17:46:008.3[facility] BoqugnhWAAFMNXTVF2453-30-19 17:46:0087.4[facility] KfsxedtHNOEPFCPTB7489-03-80 17:46:0039.9[facility] UqqgtkaAAHLJKCLIE5267-85-70 17:46:0013.7[facility] BaieulvZYKRURCHID9386-20-94 17:46:0015.3[facility] [place] VAYQCUHIVX4648-34-91 17:46:0034.3[facility] FijfvqzTCQHXJHXBN7722-57-88 22:01:00 15.0[facility] NoijylqZGCPFZEXHS6611-23-30 22:01:0033.5[facility] HermannHEMATOLOGY 2016-12-05 22:01:00 Test Item Value Reference Range Interpretation Comments MCH (test code = MCH) 29.0 pg 27.0-31.0 Memorial ZczowqoQXJMLABIJA4580-26-64 22:01:0086.7[facility] HermannHEMATOLOGY 2016-12-05 22:01:0015.4[facility] HavdsaiYWDYMXWXOE4518-01-68 22:01:0046.1[facility] FizytsuHEWEIXADYU0566-80-23 22:01:005.32[facility] AvnxziyNJLUNOEKHM8946-28-90 22:01:007.8[facility] FwsovaeUMFLXUTTSS3391-69-79 22:01:72370Nrfehhpz [place] LAPWPGYFTA7764-46-94 22:01:0011.3[facility] JkqmyqtMLKUGCOODU2890-07-30 22:01:00 0.5[facility] GbkmjoaITEZUOLSUZ2282-08-29 22:01:000.1[facility] HermannHEMATOLOGY 2016-12-05 22:01:0060.8[facility] SiqbxcaCNLWAQMLLV9656-64-47 22:01:002.8[facility] BvhcmmcFHMWFJCQAT2228-71-95 22:01:008.6[facility] YqgulobRNGCHMJYMR4394-88-57 22:01:0024.6[facility] DweyxklYKATCQEMIP2367-50-36 22:01:004.8[facility] [place] ORIZBJURQE4705-86-91 22:01:001.2[facility] WsjhruyFUMZPSPTNM2909-69-14 22:01:006.9 [facility] MtkbnrcMOXHASMCWC5308-36-40 22:01:001.0[facility] HermannHEMATOLOGY 2016-12-05 22:01:00Normal (12/05/16 5:01 PM)[facility] IcwesukVJKBGMYHLS6014-84-08 22:01:00Normal (12/05/16 5:01 PM)[facility]ann[facility] AND TXGFZ4368-67-10 21:40:00Trace *ABN*(12/05/16 4:40 PM)[facility] YVYMY7991-18-06 21:40:000.2[facility] AND BLJZG6476-47-25 21:40:00Negative *NA*(12/05/16 4:40 PM)[facility] YDHAE8433-85-16 21:40:00Negative (12/05/16 4:40 PM)[facility] ODDOS7633-22-47 21:40:00Negative (12/05/16 4:40 PM)[facility] CMPCT9853-45-88 21:40:00 Test Item Value Reference Range Interpretation Comments UA pH (test code = UA pH) 6.5 1 5.0-8.0 [facility] AGZNE8638-69-73 21:40:00Trace *ABN*(12/05/16 4:40 PM) [facility] GBHTI6032-80-93 21:40:00Negative (12/05/16 4:40 PM) [facility] RCOJP1153-09-67 21:40:00Clear (12/05/16 4:40 PM) [facility] SGTUK5746-20-81 21:40:00 Test Item Value Reference Range Interpretation Comments UA Spec Grav (test code = UA Spec 1.020 1 Grav) [facility] YKCTR2636-63-14 21:40:00Negative *NA*(12/05/16 4:40 PM)[facility] YFXKU7086-80-98 21:40:00Yellow *NA*(12/05/16 4:40 PM)[facility] HermannCHEM GRTSX8867-94-44 21:39:81094Tdiqyttk HermannCHEM PANEL 2016-12-05 21:39:0082[facility] HermannCHEM NJDJL4478-80-39 21:39:0076[facility] HermannCHEM AVTZU3854-21-10 21:39:000.2[facility] HermannCHEM RGPGJ8393-58-78 21:39:0029[facility] HermannCHEM UINWZ3610-75-84 21:39:000.8[facility] HermannCHEM YBPDN2475-64-15 21:39:004.7[facility] HermannCHEM DXXRK5466-29-85 21:39:0016 [facility]annCHEM GPHML5921-88-84 21:39:0015[facility] HermannCHEM PANEL 2016-12-05 21:39:000.93[facility] HermannCHEM FOXBP4336-26-24 21:39:27058Mibzvmmb HermannCHEM UGNQB4607-17-58 21:39:003.6[facility] HermannCHEM VBTPV2900-33-27 21:39:06495Anhzrbxz HermannCHEM UELMZ9396-21-86 21:39:0029[facility] HermannCHEM BGJEH9926-92-04 21:39:008.5[facility] HermannCHEM EGSNE1228-50-88 21:39:009.3 [facility]annCHEM UCECT9615-49-06 21:39:003.8[facility] HermannCHEM PANEL 2016-12-05 21:39:80448Ybbeluqy HermannCHEM TZNMA4935-73-92 21:39:0098[facility] HermannCHEM XQXAK3828-21-68 21:39:0011.6[facility] FpyqbzzKRFGPUIIHUGAH6693-63-43 21:39:00Negative *NA*(12/05/16 4:39 PM)[facility] HermannCHEM OQXER9089-90-22 10:35:35737Wgixekea HermannCHEM UJQWK6557-97-73 10:35:0024[facility] HermannCHEM UWGPF6789-91-27 10:35:0099[facility] HermannCHEM HCEYB9085-28-61 10:35:000.5 [facility]annCHEM UWGUN2666-44-64 10:35:0028[facility] HermannCHEM PANEL 2016-07-11 10:35:0053[facility] HermannCHEM BLREI8791-35-52 10:35:003.5[facility] HermannCHEM VWACQ0687-23-75 10:35:007.8[facility] HermannCHEM QPPYP6971-70-46 10:35:008.3[facility] HermannCHEM MNUWS7359-10-77 10:35:0081[facility] HermannCHEM RHNON6772-33-00 10:35:64185Fudfqjvp HermannCHEM NUTAF0574-78-58 10:35:0013 [facility]annCHEM WZSZX8223-22-85 10:35:003.7[facility] HermannCHEM PANEL 2016-07-11 10:35:000.50[facility] HermannCHEM OPFGA6488-36-98 10:35:21780Podlfkvk HermannCHEM IGSSN2990-52-69 10:35:000.8[facility] HermannCHEM OOMDY5959-60-84 10:35:004.3[facility] HermannCHEM YWBJC3646-99-47 10:35:0026[facility] HermannCHEM PMMSQ6012-61-28 10:35:0013.7[facility] HermannCHEM QSPSP8686-85-48 10:35:002.1 [facility] UnihwmdUCFMROCQSN6265-48-16 10:35:000.8[facility] HermannHEMATOLOGY 2016-07-11 10:35:002.2[facility] EbnwkubTYECYEDZFR5066-70-26 10:35:0023.6[facility] YezyzsaSUREKTWGLL7556-22-61 10:35:008.6[facility] KvheiybXBIFQNSBUV4148-70-32 10:35:0067.4[facility] PqcuybjKASTZRMIBH1970-37-35 10:35:000.1[facility] [place] WGTXFZDVZN5961-38-03 10:35:006.4[facility] UfgtdkjQFXAUQDWVZ6938-54-77 10:35:000.3 [facility] UtudacmPQVDBYFADM8540-17-18 10:35:008.5[facility] HermannHEMATOLOGY 2016-07-11 10:35:95081Tiwxijmz OdkpqrvESMIZOQZJV4951-54-94 10:35:00 Test Item Value Reference Range Interpretation Comments MCH (test code = MCH) 29.0 pg 27.0-31.0 [facility] FpbeqphOXNXRHTEEN6944-74-40 10:35:0013.7[facility] HermannHEMATOLOGY 2016-07-11 10:35:009.5[facility] UpoyteqPGXVPBYJTY7247-00-59 10:35:004.29[facility] KqognutVPCCRXTAKR1227-19-60 10:35:0012.4[facility] DtyanxkMQAUZLTHDX3078-59-84 10:35:0036.9[facility] KrrgtwcWJKGVIAUIG4228-62-85 10:35:0085.9[facility] JPYGJDKLNU0251-23-69 10:35:0033.7[facility] SwmiljuNTRNISEHVJ4255-75-50 10:35:00 Test Item Value Reference Range Interpretation Comments PTT (test code = PTT) 28.8 s 22.9-35.8 [facility] HkrgucoCWXKDZMKQZ9931-75-41 10:35:00 Test Item Value Reference Range Interpretation Comments PT (test code = PT) 14.7 s 12.0-14.7 [facility] YxgwpcsLWFDVNIOTE1184-91-66 10:35:001.13[facility] 2016-07-11 00:30:000.0[facility] TwflpegGGYXAYMRBG8600-07-61 00:30:007.1[facility] TtvfaggJEFJQMCFDF9132-92-89 00:30:000.0[facility] JjoetknOARGQJUUTX3781-37-98 00:30:000.2[facility] YczepivEOZWZFJBOW6224-26-76 00:30:000.5[facility] FLSTSSJABD9735-14-64 00:30:000.0[facility] ImacwyeNMCBSAQZXO5284-02-03 00:30:001.7 [facility] TgrcmhdDHBJUWPBDV5652-97-75 00:30:0018.4[facility] 2016-07-11 00:30:005.1[facility] YyfrbdiOGFLSHVADW2276-46-38 00:30:0076.3[facility] TcuzhzyZXAEZJSXGE9918-59-48 00:30:007.6[facility] OrqjsjqHQMHSQCEYW1600-62-61 00:30:0086.3[facility] KjntcnkBSNEWTMZWM4597-25-63 00:30:0033.2[facility] VYXBHBMCAN7978-87-19 00:30:00 Test Item Value Reference Range Interpretation Comments MCH (test code = MCH) 28.7 pg 27.0-31.0 [facility] RvkxpugKSVFIXPSGY8927-56-45 00:30:0035.5[facility] 2016-07-11 00:30:0011.8[facility] KgpaktsIFSZEGEGHS7360-79-35 00:30:004.11[facility] LqsbzsqBRNMEADLEW8916-97-79 00:30:009.3[facility] RdgilhaWCKSOPAQPF7101-95-45 00:30:0014.0[facility] UpylgodWPAAHVATVP2597-24-10 00:30:34291Rkjtrnye HermannCHEM RROSG6786-39-10 22:27:002.3[facility]annCHEM WCCRZ4911-37-28 22:27:008.2 [facility]annCHE[facility] THDLM1674-82-02 22:27:000.5[facility]annCHEM PANEL 2016-07-10 22:27:0089[facility]annCHE[facility] JUJND4530-56-71 22:27:004.6[facility]annCHE[facility] MYDYS4295-81-66 22:27:000.8[facility]annCHE[facility] FLSBK2127-83-38 22:27:000.4[facility]annCHEM RAZVG9283-83-04 22:27:000.1[facility]annCHEM ITGLE8733-98-96 22:27:003.6[facility]annCHEM AGSSC3598-49-37 22:27:0029 [facility]annCHE[facility] HWJXR0203-99-42 22:27:0055[facility]annCHEM PANEL 2016-07-10 22:27:0075[facility]annCHEM OTCYE7896-30-05 22:27:71435Ffvieqfp HermannCHEM EZKAC4972-07-06 22:27:000.63[facility]annCHEM QWGUI1890-53-46 22:27:0011.8[facility]annCHEM BMOWM2139-02-59 22:27:25578Kzusahta HermannCHEM VKDZH9476-42-21 22:27:0028[facility]annCHEM NYRZQ4589-80-27 22:27:008.9 [facility]annCHE[facility] AFCMR2600-80-37 22:27:003.8[facility]annCHEM PANEL 2016-07-10 22:27:0099[facility]annCHEM [id number] 22:27:25863Agqgwmur HermannCHEM [id number] 22:27:0013[facility] OtopgwpUWPNELYREZSYU9420-25-14 22:27:00Negative *NA*(07/10/16 5:27 PM)[facility] [id number] 22:27:00Negative *NA*(07/10/16 5:27 PM)[facility] [id number] 22:27:00Negative (07/10/16 5:27 PM)[facility] [id number] 22:27:00Negative (07/10/16 5:27 PM)[facility] [id number] 22:27:00Negative (07/10/16 5:27 PM)[facility] [id number] 22:27:001[facility] EJJPJ7535-71-30 22:27:002[facility] URINE AND RPHHH9719-39-95 22:27:007.0[facility] MOZFU8647-58-00 22:27:001.017[facility] TXYPJ7501-07-35 22:27:00Moderate *ABN*(07/10/16 5:27 PM)[facility] NfecaryIALTMWLFWNHXA2105-53-20 08:57:00Negative *NA*(07/09/16 3:57 AM)[facility] [id number] 08:54:0012[facility]ann[facility] AVHFC0089-02-30 08:54:000.66[facility]ann[facility] ELKSQ7437-38-50 08:54:51692Kfqxyoce HermannCHEM XFJTV9863-11-88 08:54:71843Kdwoniof HermannCHEM QISVS9395-40-26 08:54:0045[facility]ann[facility] ITZDN4883-45-91 08:54:000.4 [facility] HEAKF0924-66-23 08:54:008.4[facility]annCHE[facility] PANEL 2016-07-09 08:54:009.2[facility]ann[facility] DJWLW0126-53-60 08:54:0073[facility] TOFBU2011-21-57 08:54:003.6[facility] KIBMV6231-98-10 08:54:0029[facility]ann[facility] NZZXH3026-92-12 08:54:84554Lucflfre HermannCHEM SYQZD3893-82-03 08:54:003.4[facility] GTWDN9963-01-42 08:54:11884 [facility] DVPYT0892-67-93 08:54:28692Kjtooven HermannCHEM PANEL 2016-07-09 08:54:000.8[facility]ann[facility] UAPUX4673-49-07 08:54:004.8[facility] UMPQA4811-50-80 08:54:0018[facility]ann[facility] FLWIB1362-41-66 08:54:009.4[facility] PJGFJ7809-15-90 08:54:0081[facility] IRQXQZYTNR0864-07-61 08:54:008.4[facility] NcymvovLVXWERKAKD0388-21-74 08:54:00 14.1[facility] CzdmkmlAMQMLYJHGY4191-66-17 08:54:28031Bsaddfxf HermannHEMATOLOGY 2016-07-09 08:54:008.2[facility] LievzrrESHGOEWLUJ2791-95-53 08:54:0033.4[facility] OesnoldEFUDJLMWBE3736-73-63 08:54:00 Test Item Value Reference Range Interpretation Comments MCH (test code = MCH) 28.9 pg 27.0-31.0 [facility] VbpujdyKFJNUISMCO5908-41-90 08:54:0040.1[facility] HermannHEMATOLOGY 2016-07-09 08:54:0086.4[facility] NzmfwjnNXDWRWWHWQ4684-97-65 08:54:004.64[facility] DoxzgeyKNWKOIXDNL1024-36-39 08:54:0013.4[facility] DswrnwzQQAYFEPDYZ0125-56-64 08:54:000.0[facility] DmnytcdDLJJOGITYC3062-01-92 08:54:006.4[facility] YMLKRCZROE0594-09-46 08:54:001.8[facility] YbqukuiTFYYZSYSYC2557-44-41 08:54:000.2 [facility] GkxdvdgLFTRWICFGA3260-33-50 08:54:000.0[facility] HermannHEMATOLOGY 2016-07-09 08:54:0076.5[facility] YsaheyhOPUXKTVWFP9378-14-06 08:54:0021.0[facility] VczztokXXPYZTOYBX5053-50-15 08:54:002.5[facility] AhsfnnuNICNRGCVPV0216-76-27 08:54:000.0[facility] XydkpqrSVRLSCEEHF4272-88-98 08:54:000.0[facility]
[2020-05-18 10:18] LABS: Urine Blood Negative (Negative); Urine Glucose Negative (Negative); Urine Protein Negative (Negative); Urine pH 8.5 (5.0-7.0)
[2020-05-18 10:23] LABS: Urine Specific Gravity/Preg >1.030 (1.005-1.030)
[2020-05-18] MEDS ORDERED: ONDANSETRON 4 MG/2 ML VIAL ONE (10:45)
[2020-05-18] MEDS ORDERED: MORPHINE 2 MG/ML SYR ONE ×2 (10:45→11:57)
[2020-05-18] MEDS ORDERED: FAMOTIDINE 20 MG/2 ML VIAL IV ONE (10:46)
[2020-05-18 11:00] LABS: Absolute Lymphocytes (CBC) 2.7 K/uL (0.7-4.9); Basophils % 0.8 % (0-1.3); Lymphocytes % 22.9 % (15.3-44.8); MPV 8.4 fL (7.6-11.3)
[2020-05-18 11:15] LABS: ALT/SGPT 55 U/L (12-78); AST/SGOT 29 U/L (15-37); Albumin 3.3 g/dL (3.4-5.0); Alkaline Phosphatase 82 U/L (45-117); BUN Blood Urea Nitrogen 5 mg/dL (7-18); Bicarbonate 28 mmol/L (21-32); Bilirubin Direct 0.2 mg/dL (0-0.2); Bilirubin Total 0.4 mg/dL (0.2-1.0); Glucose Level 94 mg/dL (74-106); Lipase 122 U/L (73-393); Potassium 3.1 mmol/L (3.5-5.1); Sodium Level 139 mmol/L (136-145)
--- NOTE | 2020-05-18 11:45 | RAD REPORT ---
EXAM DESCRIPTION: US - Abdomen Exam Limited - 05/18/2020 11:38 am CLINICAL HISTORY: Abdominal pain. COMPARISON: None. FINDINGS: The gallbladder wall is not thickened. A gallstone is not seen. The gallbladder is mildly contracted The biliary tree is normal caliber. IMPRESSION: Mildly contracted gallbladder. Otherwise unremarkable exam
--- NOTE | 2020-05-18 12:18 | RAD REPORT ---
EXAM DESCRIPTION: CT - Abdomen Pelvis W Contrast - 05/18/2020 12:07 pm CLINICAL HISTORY: Abdominal pain/epigastric pain COMPARISON: May 09, 2020 TECHNIQUE: Computed axial tomography of the abdomen pelvis was obtained. 100 cc Isovue-300 was admin istered intravenously. Oral contrast was not requested which limits evaluation of bowel and appendix. All CT scans are performed using dose optimization technique as appropriate and may include automated exposure control or mA/KV adjustment according to patient size. FINDINGS: The liver, spleen, pancreas, adrenal and kidneys appear unremarkable. There is no evidence of diverticulitis. IMPRESSION: No acute abnormality is displayed.
[2020-05-18] MEDS ORDERED: MAGNES/ALUMIN/SIMET 30ML UCUP ONE (12:47)
[2020-05-18] MEDS ORDERED: LIDOCAINE VISCOUS 2% SOLN 15 ML UDC ONE (12:47)
--- NOTE | 2020-05-18 12:52 | ER ---
Nurse's Notes [facility] Name: Minda Warner Age: 35 yrs Sex: Female : 1985 Arrival Date: 05/18/2020 Time: 10:04 Bed 20 Private MD: Diagnosis: Epigastric pain;Nausea and vomiting;Diarrhea, unspecified Presentation: 05/18 10:06 Chief complaint: Patient states: Epigastric pain, vomiting and diarrhea since last ca1 night. Coronavirus screen: Client denies travel out of the [place] in the last 14 days. diarrhea, vomiting. Client presents with at least one sign or symptom that may indicate coronavirus-19. Standard/surgical mask placed on the client. Provider contacted for isolation considerations. Ebola Screen: Patient negative for fever greater than or equal to 101.5 degrees Fahrenheit, and additional compatible Ebola Virus Disease symptoms Patient denies exposure to infectious person. Patient denies travel to an Ebola-affected area in the 21 days before illness onset. No symptoms or risks identified at this time. Initial Sepsis Screen: Does the patient meet any 2 criteria? No. Patient's initial sepsis screen is negative. Does the patient have a suspected source of infection? No. Patient's initial sepsis screen is negative. Risk Assessment: Do you want to hurt yourself or someone else? Patient reports no desire to harm self or others. Onset of symptoms was May 18, 2020. 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 Pylori; ca1 - PSHx: 10:25 Appendectomy; ca1 - Immunization history:: Flu vaccine is not up to date. - Social history:: Smoking status: Patient/guardian denies using tobacco, but has a distant history of tobacco abuse. Screenin:10 Abuse screen: Denies threats or abuse. Denies injuries from another. Nutritional ca1 screening: No deficits noted. Tuberculosis screening: No symptoms or risk factors identified. Fall Risk IV access (20 points). Assessment: 10:10 General: Appears in no apparent distress. comfortable, Behavior is calm, cooperative, ca1 appropriate for age. Pain: Complains of pain in epigastric area Pain currently is 10 out of 10 on a pain scale. Pain began 1 day ago. Neuro: Level of Consciousness is awake, alert, obeys commands, Oriented to person, place, time, situation. Cardiovascular: Heart tones S1 S2 present Capillary refill < 3 seconds Patient's skin is warm and dry. Respiratory: Airway is patent Respiratory effort is even, unlabored, Respiratory pattern is regular, symmetrical, Breath sounds are clear bilaterally. GI: Abdomen is flat, non-distended, Bowel sounds present X 4 quads. Abd is soft and non tender X 4 quads. Reports diarrhea, vomiting, since last night. : No signs and/or symptoms were reported regarding the genitourinary system. EENT: No deficits noted. No signs and/or symptoms were reported regarding the EENT system. Derm: Skin is intact, is healthy with good turgor, Skin is pink, warm \T\ dry. Musculoskeletal: Circulation, motion, and sensation intact. Capillary refill < 3 seconds. 11:37 Reassessment: Patient appears in no apparent distress at this time. Patient and/or ca1 family updated on plan of care and expected duration. Pain level reassessed. Patient is alert, oriented x 3, equal unlabored respirations, skin warm/dry/pink. 12:12 General: Appears in no apparent distress. uncomfortable, Behavior is calm, cooperative. vg1 Pain: Complains of pain in epigastric area and right upper quadrant Pain currently is 10 out of 10 on a pain scale. Neuro: Level of Consciousness is awake, alert, obeys commands, Oriented to person, place, time, situation. Cardiovascular: Patient's skin is warm and dry. Respiratory: Airway is patent Respiratory effort is even, unlabored. GI: Abdomen is flat, Bowel sounds present X 4 quads. Abd is soft X 4 quads Abdomen is tender to palpation in epigastric area and right upper quadrant. : No signs and/or symptoms were reported regarding the genitourinary system. EENT: No signs and/or symptoms were reported regarding the EENT system. Derm: Skin is intact, is healthy with good turgor. Musculoskeletal: Circulation, motion, and sensation intact. 12:26 Reassessment: Received VO from [place] [facility] to administer GI cocktail, Maalox 30 mL and vg1 Lidocaine 15 ml 2% PO x1. Vital Signs: 10:06 BP 147 / 96; Pulse 76; Resp 16 S; Temp 98.2(TE); Pulse Ox 100% on R/A; Weight 45.36 kg ca1 (R); Height 5 ft. 0 in. (152.40 cm) (R); Pain 10/10; 10:59 BP 122 / 95; Pulse 62; Resp 18 S; Pulse Ox 100% on R/A; ca1 11:48 BP 115 / 80; Pulse 74; Resp 16 S; Pulse Ox 100% on R/A; ca1 12:15 BP 130 / 94; Pulse 66; Resp 16; Pulse Ox 98% on R/A; vg1 10:06 Body Mass Index 19.53 (45.36 kg, 152.40 cm) ca1 ED Course: 10:04 Patient arrived in ED. rg4 10:07 Triage completed. ca1 10:08 Arm band placed on right wrist. ca1 10:10 Sierra Espinosa, RN is Primary Nurse. ca1 10:10 Patient has correct armband on for positive identification. Placed in gown. Bed in low ca1 position. Call light in reach. Side rails up X 1. Pulse ox on. NIBP on. Warm blanket given. 10:18 West Acuña PA is PHCP. cp 10:18 Peter Garsia MD is Attending Physician. cp 10:26 Missed attempt(s): 22 gauge in right antecubital area. Bleeding controlled, band aid ca1 applied, catheter tip intact. 10:39 Inserted saline lock: 20 gauge in right antecubital area, using aseptic technique. ca1 ,using aseptic technique. by KJ, dietary tech Blood collected. 10:39 Initial lab(s) drawn, by me, sent to lab. ca1 11:16 US Abdomen Limited: epigastric/RUQ In Process Unspecified. EDMS 12:01 Primary Nurse role handed off by Sierra Espinosa RN vg1 12:01 Kriss James RN is Primary Nurse. vg1 12:07 CT Abd/Pelvis - IV Contrast Only In Process Unspecified. EDMS 12:12 Patient moved back from CT. vg1 12:34 Urine --Ancillary (enter results) Sent. sv 12:50 Petar Linares MD is Referral Physician. cp 13:15 No provider procedures requiring assistance completed. IV discontinued, intact, vg1 bleeding controlled, No redness/swelling at site. Pressure dressing applied. Administered Medications: 10:40 Drug: Pepcid (famotidine) 20 mg Route: IVP; Site: right antecubital; ca1 11:37 Follow up: Response: No adverse reaction ca1 10:42 Drug: Zofran (Ondansetron) 4 mg Route: IVP; Site: right antecubital; ca1 11:37 Follow up: Response: No adverse reaction; Nausea is decreased ca1 10:44 Drug: morphine 2 mg {Note: rass 0.} Route: IVP; Site: right antecubital; ca1 11:44 Follow up: Response: No adverse reaction; Pain is unchanged, physician notified; RASS: ca1 Alert and Calm (0) 11:45 Drug: morphine 2 mg {Note: rass 0.} Route: IVP; Site: right antecubital; ca1 13:16 Follow up: Response: No adverse reaction vg1 12:32 Drug: GI Cocktail without - (Maalox Suspension 30 ml, Lidocaine Liquid 2 % 15 vg1 ml) Route: PO; 13:12 Follow up: Response: No adverse reaction; Pain is decreased vg1 13:12 Drug: Potassium Effervescent Tablet 50 mEq Route: PO; vg1 13:12 Follow up: Response: Medication administered at discharge. vg1 Outcome: 12:51 Discharge ordered by . 13:15 Discharged to home ambulatory. vg1 13:15 Condition: stable 13:15 Discharge instructions given to patient, Instructed on discharge instructions, follow up and referral plans. medication usage, Demonstrated understanding of instructions, follow-up care, medications, Prescriptions given X 2. 13:15 Patient left the ED. vg1 Signatures: Dispatcher [employer] EDMS Hillary Storm RN RN West Singleton PA PA cp Garcia, Rubi rg4 Sierra Espinosa RN RN ca1 Kriss James RN RN vg1 Corrections: (The following items were deleted from the chart) 10:26 10:08 PSHx: None; ca1 ca1
--- NOTE | 2020-05-18 12:52 | EDPHYS ---
Physician Documentation [facility] Name: Minda Warner Age: 35 yrs Sex: Female : 1985 Arrival Date: 05/18/2020 Time: 10:04 Bed 20 Private MD: ED Physician Peter Garsia HPI: 05/18 10:15 This 35 yrs old Female presents to ER via Ambulatory with complaints of cp Abdominal Pain. 10:15 The patient presents with abdominal pain in the epigastric area. Onset: The cp symptoms/episode began/occurred last night. The symptoms do not radiate. Associated signs and symptoms: Pertinent positives: nausea and vomiting, diarrhea, Pertinent negatives: blood in stools, constipation, fever, palpitations, vomiting blood. The symptoms are described as constant. Severity of pain: in the emergency department the pain is unchanged despite home interventions. 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 Pylori; ca1 - PSHx: 10:25 Appendectomy; ca1 - Immunization history:: Flu vaccine is not up to date. - Social history:: Smoking status: Patient/guardian denies using tobacco, but has a distant history of tobacco abuse. ROS: 10:20 Constitutional: Negative for body aches, chills, fever. cp 10:20 Eyes: Negative for injury, pain, redness, and discharge. cp 10:20 ENT: Negative for ear pain, sore throat, difficulty swallowing, difficulty handling secretions. 10:20 Respiratory: Negative for cough, shortness of breath, wheezing. 10:20 Abdomen/GI: Positive for abdominal pain, nausea and vomiting, diarrhea, of the epigastric area, Negative for constipation, hematemesis, black/tarry stool, rectal bleeding. 10:20 Back: Negative for radiated pain. 10:20 Neuro: Negative for altered mental status, headache, syncope, weakness. 10:20 All other systems are negative. Exam: 10:25 Constitutional: The patient appears in no acute distress, alert, awake, non-toxic, well cp developed, well nourished, uncomfortable. 10:25 Head/Face: Normocephalic, atraumatic. cp 10:25 Eyes: Periorbital structures: appear normal, Conjunctiva: normal, no exudate, no injection, Lids and lashes: appear normal, bilaterally. 10:25 ENT: External ear(s): are unremarkable, Nose: is normal, Mouth: Lips: moist, Oral mucosa: moist, Posterior pharynx: Airway: no evidence of obstruction, patent. 10:25 Chest/axilla: Inspection: normal, Palpation: is normal, no crepitus, no tenderness. 10:25 Cardiovascular: Rate: normal, Rhythm: regular. 10:25 Respiratory: the patient does not display signs of respiratory distress, Respirations: normal, no use of accessory muscles, no retractions, labored breathing, is not present, Breath sounds: are clear throughout, no decreased breath sounds, no stridor, no wheezing. 10:25 Abdomen/GI: Inspection: abdomen appears normal, Bowel sounds: active, all quadrants, Palpation: soft, in all quadrants, severe abdominal tenderness, in the epigastric area, rebound tenderness, is not appreciated, voluntary guarding, is elicited in the epigastric area. Vital Signs: 10:06 BP 147 / 96; Pulse 76; Resp 16 S; Temp 98.2(TE); Pulse Ox 100% on R/A; Weight 45.36 kg ca1 (R); Height 5 ft. 0 in. (152.40 cm) (R); Pain 10/10; 10:59 BP 122 / 95; Pulse 62; Resp 18 S; Pulse Ox 100% on R/A; ca1 11:48 BP 115 / 80; Pulse 74; Resp 16 S; Pulse Ox 100% on R/A; ca1 12:15 BP 130 / 94; Pulse 66; Resp 16; Pulse Ox 98% on R/A; vg1 10:06 Body Mass Index 19.53 (45.36 kg, 152.40 cm) ca1 MDM: 10:21 Patient medically screened. cp 11:00 Differential diagnosis: cholecystitis, Cholelithiasis, gastritis, pancreatitis, Peptic cp Ulcer Disease, Perf. Duodenal Ulcer, Perf. Gastric Ulcer. 12:50 Data reviewed: vital signs, nurses notes, lab test result(s), radiologic studies, CT cp scan, ultrasound. 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 Response to treatment: the patient's symptoms have markedly improved after treatment, VSS. Pain and nausea markedly improved, vomiting resolved. Discussed results of labs and radiology studies that were negative for acute findings. Will discharge to home for continued monitoring. 05/18 10:13 Order name: Basic Metabolic Panel; Complete Time: 11:50 ca1 05/18 11:50 Interpretation: Normal except: K 3.1; BUN 5; CRE 0.51. cp 05/18 10:13 Order name: CBC with Diff; Complete Time: 11:50 ca1 05/18 10:13 Order name: Hepatic Function; Complete Time: 11:50 ca1 05/18 10:13 Order name: Lipase; Complete Time: 11:50 ca1 05/18 10:18 Order name: Urine Dipstick-Ancillary; Complete Time: 11:03 EDMS 05/18 11:03 Interpretation: Normal except: UPH 8.5; UESTR 1+. cp 05/18 10:18 Order name: Urine --Ancillary (enter results) em1 05/18 10:19 Order name: Urine --Ancillary; Complete Time: 11:03 EDMS 05/18 10:22 Order name: US Abdomen Limited: epigastric/RUQ; Complete Time: 11:50 cp 05/18 11:50 Order name: CT Abd/Pelvis - IV Contrast Only; Complete Time: 12:37 cp 05/18 10:13 Order name: IV Saline Lock; Complete Time: 10:23 ca1 05/18 10:13 Order name: Labs collected and sent; Complete Time: 10:23 ca1 Administered Medications: 10:40 Drug: Pepcid (famotidine) 20 mg Route: IVP; Site: right antecubital; ca1 11:37 Follow up: Response: No adverse reaction ca1 10:42 Drug: Zofran (Ondansetron) 4 mg Route: IVP; Site: right antecubital; ca1 11:37 Follow up: Response: No adverse reaction; Nausea is decreased ca1 10:44 Drug: morphine 2 mg {Note: rass 0.} Route: IVP; Site: right antecubital; ca1 11:44 Follow up: Response: No adverse reaction; Pain is unchanged, physician notified; RASS: ca1 Alert and Calm (0) 11:45 Drug: morphine 2 mg {Note: rass 0.} Route: IVP; Site: right antecubital; ca1 13:16 Follow up: Response: No adverse reaction vg1 12:32 Drug: GI Cocktail without - (Maalox Suspension 30 ml, Lidocaine Liquid 2 % 15 vg1 ml) Route: PO; 13:12 Follow up: Response: No adverse reaction; Pain is decreased vg1 13:12 Drug: Potassium Effervescent Tablet 50 mEq Route: PO; vg1 13:12 Follow up: Response: Medication administered at discharge. vg1 Disposition: 13:40 Co-signature as Attending Physician, Peter Garsia MD I agree with the assessment and kdr plan of care. Disposition: 05/18/20 12:51 Discharged to Home. Impression: Epigastric pain, Nausea and vomiting, Diarrhea, unspecified. - Condition is Stable. - Discharge Instructions: Diarrhea, Adult, Nausea and Vomiting, Adult, Food Choices for Peptic Ulcer Disease. - Prescriptions for Carafate 1 gram Oral Tablet - take 1 tablet by ORAL route 4 times per day take on an empty stomach, beginning on waking and last dose at bedtime. Dissolve tablet in warm water prior to ingestion; 100 tablet. Protonix 40 mg Oral Tablet - take 1 tablet by ORAL route once daily; 30 tablet. - Medication Reconciliation Form, Thank You Letter, Antibiotic Education, Prescription Opioid Use form. - Follow up: Petar Linares MD; When: 1 - 2 days; Reason: Recheck today's complaints. - Problem is new. - Symptoms have improved. Signatures: Dispatcher [employer] EDMS Peter Garsia MD MD kdr West Acuña PA PA cp Acob, Cheryl, RN RN ca1 Kriss James RN RN vg1 Corrections: (The following items were deleted from the chart) 10:26 10:08 PSHx: None; ca1 ca1 13:15 12:51 05/18/2020 12:51 Discharged to Home. Impression: Epigastric pain; Nausea and vg1 vomiting; Diarrhea, unspecified. Condition is Stable. Forms are Medication Reconciliation Form, Thank You Letter, Antibiotic Education, Prescription Opioid Use. Follow up: Petar Linares; When: 1 - 2 days; Reason: Recheck today's complaints. Problem is new. Symptoms have improved. cp 14:25 13:00 Chart complete. cp cp
[2020-05-18] MEDS ORDERED: POTASSIUM 25 MEQ EFFERV TAB ONE (13:10)
[2020-05-19 01:13] VITALS: O2SAT 100
[2020-05-19 01:15] VITALS: TEMP 98.2
[2020-05-19 01:23] VITALS: BP 115/80
== END 2020-05-18 13:15 | disposition home or self-care (01) ==
LOC: ER 10:03
DX: R11.2 Nausea with vomiting, unspecified (principal); R19.7 Diarrhea, unspecified; I10 Essential (primary) hypertension
CPT/HCPCS: 36415; 74177; 76705; 80048; 80076; 81003; 81025; 83690; 85025; 96374; 96375; 99284; J2270; J2405; Q9967